=== PATIENT | female | born 1955 | race Caucasian/White ===

== ENCOUNTER 2016-07-12 13:01 | Emergency (ER) | payer OTHER ==
[2016-07-12] MEDS ORDERED: KETOROLAC 30 MG/ML 1 ML VIAL IVP STA (14:12)
[2016-07-12] MEDS ORDERED: SODIUM CHLORIDE 0.9% 1,000 ML IV ONE (14:16)
--- NOTE | 2016-07-12 14:16 | ED ---
Abdominal Pain HPI - General Chief Complaint: Abdominal Pain Stated Complaint: Abd Pain Time Seen by Provider: 07/12/16 13:59 Source: patient Mode of arrival: ambulatory Limitations: no limitations - History of Present Illness Initial Comments: This is a 60-year-old female who presents emergency department for suprapubic abdominal discomfort. She states that it originally started in her epigastric region about 3 days ago and has since migrated to her suprapubic region. She states that it seems to be worse when she is having a bowel movement or urinating. She denies any dysuria or hematuria however. She denies any nausea or vomiting. She had one episode of diarrhea earlier today that was nonbloody. [facility] her and sent her here for further evaluation. She denies any fevers or chills. She has taken a Tylenol at home with no relief. States she's never had anything like this previously. - Related Data Previous Rx's Medication Instructions Recorded Sulfamethox-Tmp 800-160Mg [Bactrim 1 tab PO Q12HR #14 tab 07/12/16 DS 800-160 mg] Allergies Allergy/AdvReac Type Severity Reaction Status Date / Time No Known Allergies Allergy Verified 07/12/16 15:00 Review of Systems ROS Statement: Those systems with pertinent positive or pertinent negative responses have been documented in the HPI. ROS Other: All systems not noted in ROS Statement are negative. Past Medical History Past Medical History: No Reported History History of Any Multi-Drug Resistant Organisms: None Reported Additional Past Surgical History / Comment(s): hemmorhoid Past Psychological History: No Psychological Hx Reported Smoking Status: Current every day smoker Past Alcohol Use History: Rare Past Drug Use History: None Reported General Exam - General Exam Comments Initial Comments: Constitutional: Awake alert Appears comfortable Head: Normocephalic atraumatic Eyes: no conjunctival injection No scleral icterus EOMI Neck: No JVD Supple Heart: Regular rate rhythm normal S1-S2 no murmurs Lungs: Clear to auscultation bilaterally No wheezing No rales Abdomen: Soft nondistended tenderness in the suprapubic region Extremities: Non edematous DP pulses intact Radial pulses intact Neuro: A&Ox3 No focal neurologic deficits Psych: Appropriate mood and affect Limitations: no limitations Course Vital Signs 07/12/16 13:09 Temperature 99.1 F Pulse Rate 103 H Respiratory 20 Rate Blood Pressure 112/73 O2 Sat by Pulse 99 Oximetry Medical Decision Making - Medical Decision Making This is a 60-year-old female who presents emergency department for suprapubic abdominal pain and lower back pain. Urine analysis revealed urinary tract infection. Urine culture was sent. Patient has mild leukocytosis and was tachycardic on arrival. She was given fluids and Toradol with improvement in her vitals. Her heart rate was 80 and her temperature was 97.8 on my check. At this time going to treat her for urinary tract infection with Bactrim. She needs close follow-up with her primary doctor. I told her that if her symptoms worsened or changed at all in the next 24-48 hours she needed to return to the emergency department for reevaluation. All questions were answered. - Lab Data Result diagrams: 07/12/16 14:25 07/12/16 14:25 Lab Results 07/12/16 07/12/16 07/12/16 Range/Units 14:20 14:25 14:25 WBC 12.3 H (3.8-10.6) k/uL RBC 4.80 (3.80-5.40) m/uL Hgb 15.8 (11.4-16.0) gm/dL Hct 46.4 H (34.0-46.0) % MCV 96.8 (80.0-100.0) fL MCH 33.0 (25.0-35.0) pg MCHC 34.1 (31.0-37.0) g/dL RDW 13.2 (11.5-15.5) % Plt Count 298 (150-450) k/uL Neutrophils % 69 % Lymphocytes % 24 % Monocytes % 3 % Eosinophils % 3 % Basophils % 1 % Neutrophils # 8.4 H (1.3-7.7) k/uL Lymphocytes # 2.9 (1.0-4.8) k/uL Monocytes # 0.4 (0-1.0) k/uL Eosinophils # 0.3 (0-0.7) k/uL Basophils # 0.1 (0-0.2) k/uL Sodium 143 (137-145) mmol/L Potassium 3.4 L (3.5-5.1) mmol/L Chloride 105 (98-107) mmol/L Carbon Dioxide 24 (22-30) mmol/L Anion Gap 14 mmol/L BUN 9 (7-17) mg/dL Creatinine 0.68 (0.52-1.04) mg/dL Est GFR (MDRD) Af Amer >60 (>60 ml/min/1.73 sqM) Est GFR (MDRD) Non-Af >60 (>60 ml/min/1.73 sqM) Glucose 103 H (74-99) mg/dL Calcium 9.8 (8.4-10.2) mg/dL Total Bilirubin 0.9 (0.2-1.3) mg/dL AST 22 (14-36) U/L ALT 26 (9-52) U/L Alkaline Phosphatase 106 (38-126) U/L Total Protein 7.6 (6.3-8.2) g/dL Albumin 4.5 (3.5-5.0) g/dL Lipase 78 (23-300) U/L Urine Color Light Yellow Urine Appearance Cloudy H (Clear) Urine pH 6.5 (5.0-8.0) Ur Specific [place] 1.004 (1.001-1.035) Urine Protein Negative (Negative) Urine Glucose (UA) Negative (Negative) Urine Ketones Negative (Negative) Urine Blood Moderate H (Negative) Urine Nitrite Negative (Negative) Urine Bilirubin Negative (Negative) Urine Urobilinogen <2.0 (<2.0) mg/dL Ur Leukocyte Esterase Large H (Negative) Urine RBC 24 H (0-5) /hpf Urine WBC 59 H (0-5) /hpf Ur Squamous Epith Cells 12 H (0-4) /hpf Urine Bacteria Many H (None) /hpf Disposition Clinical Impression: UTI (urinary tract infection) Disposition: HOME SELF-CARE Condition: Stable Instructions: Urinary Tract Infection in Women (ED) Prescriptions: Sulfamethox-Tmp 800-160Mg [Bactrim DS 800-160 mg] 1 tab PO Q12HR #14 tab Referrals: Patsy Pittman DO [Primary Care Provider] - 1-2 days
[2016-07-12 14:57] LABS: Basophils # (A) 0.1 k/uL (0-0.2); Basophils % (A) 1 %; CHCM 35.3; Eosinophils # (A) 0.3 k/uL (0-0.7); Eosinophils % (A) 3 %; HCT 46.4 % (34.0-46.0); HDW 2.59; HGB 15.8 gm/dL (11.4-16.0); Luc # (Auto) 0.14; Luc % (Auto) 1; Lymphocytes # (A) 2.9 k/uL (1.0-4.8); Lymphocytes % (A) 24 %; MCHC 34.1 g/dL (31.0-37.0); MCV 96.8 fL (80.0-100.0); Mean Platelet Volume 6.9; Monocytes # (A) 0.4 k/uL (0-1.0); Monocytes % (A) 3 %; Neutrophils # (A) 8.4 k/uL (1.3-7.7); Neutrophils % (A) 69 %; RDW 13.2 % (11.5-15.5); WBC 12.3 k/uL (3.8-10.6); WBC (Perox) 11.59
[2016-07-12 15:00] LABS: Appearance,Urine Cloudy (Clear); Bacteria,Urine Many /hpf; Bilirubin,Urine Negative (Negative); Glucose,Urine (UA) Negative (Negative); Ketones,Urine Negative (Negative); Leukocyte Esterase,Urine Large (Negative); Nitrite,Urine Negative (Negative); PH, Urine 6.5 (5.0-8.0); Particle Count 13762; Protein,Urine Negative (Negative); RBC,Urine 24 /hpf (0-5); Specific Gravity,Urine 1.004 (1.001-1.035); Squamous Epithelial Cell,Urine 12 /hpf (0-4); UA Billing (MACRO vs. MICRO) MICRO; Urobilinogen,Urine <2.0 mg/dL (<2.0); WBC,Urine 59 /hpf (0-5)
[2016-07-12 15:15] LABS: ALT 26 U/L (9-52); AST 22 U/L (14-36); Alkaline Phosphatase 106 U/L (38-126); Anion Gap 14 mmol/L; Blood Urea Nitrogen 9 mg/dL (7-17); Calcium 9.8 mg/dL (8.4-10.2); Carbon Dioxide 24 mmol/L (22-30); Chloride 105 mmol/L (98-107); Glucose 103 mg/dL (74-99); Non-African American GFR(MDRD) >60 (>60 ml/min/1.73 sqM); Potassium 3.4 mmol/L (3.5-5.1); Sodium 143 mmol/L (137-145); Total Bilirubin 0.9 mg/dL (0.2-1.3); Total Protein 7.6 g/dL (6.3-8.2)
[2016-07-12 15:44] VITALS: BP 130/77; PULSE 80; RESP 18; TEMP 98
== END 2016-07-12 15:44 | disposition home or self-care (01) ==
LOC: EC 13:01
DX: N39.0 Urinary tract infection, site not specified (principal); F17.200 Nicotine dependence, unspecified, uncomplicated
CPT/HCPCS: 99284; 96374; 96361; 36415; 80053; 83690; 85025; 81001; 87086; J1885

== ENCOUNTER → 2017-02-06 | Outpatient (CLI) | payer OTHER ==
--- NOTE | 2017-02-06 13:02 | CT ---
EXAMINATION TYPE: CT urogram wo/w con DATE OF EXAM: 02/06/2017 COMPARISON: NONE HISTORY: Gross hematuria CT DLP: 1766 mGycm CONTRAST: Performed and without and with IV Contrast, patient injected with 100 ml mL of Omnipaque 300. CT Urography was performed with unenhanced followed by enhanced images of the kidneys, ureters and ur inary bladder. Delayed images were obtained. 3d reconstruction was perfromed at a separate work sta tion. FINDINGS: KIDNEYS/BLADDER: Small renal cortical cyst medial aspect of right mid kidney measuring 7.4 mm. The le ft kidney demonstrates dominant mid pole cyst measuring 1.8 cm. 4 mm upper pole left renal cyst is al so noted. No evidence for nephrolithiasis or hydronephrosis. No filling defects identified or solid m asses seen. Urinary bladder is unremarkable. LUNG BASES-: No visible nodule. No infiltrate. LIVER/GB: No calcified gallstones. Bilobed hepatic cyst adjacent to the gallbladder fossa measuring 1.6 cm. Additional cysts noted inferior right hepatic lobe measuring 1.7 cm. Biliary tree is of norm al caliber. PANCREAS: No inflammation. No distinct mass. SPLEEN: No splenic enlargement. No lesion seen. ADRENALS: No nodule. No thickening. BOWEL: Normal appendix. Normal bowel caliber. No inflammation. GENITAL ORGANS: No gross abnormality. LYMPH NODES: No greater than 1cm abdominal or pelvic lymph nodes are appreciated. AORTA: No significant abnormality. OSSEOUS STRUCTURES: No significant abnormality is seen. OTHER: No significant additional abnormality is seen. IMPRESSION: 1. No significant abnormality to account for the patient's symptoms of gross hematuria. Bilateral sim ple appearing renal cysts noted.
== END | disposition home or self-care (01) ==
LOC: RADCTMAIN 10:29
PROVIDERS: ATTEND Urology
DX: N28.1 Cyst of kidney, acquired (principal)
CPT/HCPCS: 74178; 74400; Q9967

== ENCOUNTER → 2019-12-11 | Outpatient (CLI) | payer OTHER ==
--- NOTE | 2019-12-12 15:02 | MM ---
Reason for exam: screening (asymptomatic). Last mammogram was performed 13 years and 2 months ago. History: Family history of premenopausal breast cancer in mother. Took hormonal contraceptives for 1 year. Physical Findings: A clinical breast exam by your physician is recommended on an annual basis and results should be correlated with mammographic findings. MG Screening Mammo w CAD Bilateral CC and MLO view(s) were taken. Prior study comparison: October 24, 2006, bilateral screening mammogram w/CAD. The breast tissue is extremely dense which could obscure a lesion on mammography. Finding #1: There is a typically benign 6 mm equal density (isodense), circumscribed oval mass located 10 cm from the nipple in the upper outer quadrant, posterior position of the left breast consistent with probable lymph node, likely present previously but not well seen. Finding #2: There are fine grouped/clustered calcifications in the upper outer quadrant, middle position of the right breast 7cm from the nipple. Focal asymmetry left lower inner quadrant, not seen previously. ASSESSMENT: Incomplete: need additional imaging evaluation, BI-RAD 0 RECOMMENDATION: Special view mammogram of the right breast. If lesion persists on supplemental views, image directed ultrasound is recommended. [facility] will attempt to contact patient to return for supplemental views and ultrasound if indicated. Follow-up diagnostic mammogram of the left breast in 6 months.
== END | disposition home or self-care (01) ==
LOC: RADMAMWWP 11:31
PROVIDERS: ATTEND Family Medicine
DX: Z12.31 Encounter for screening mammogram for malignant neoplasm of breast (principal); Z80.3 Family history of malignant neoplasm of breast
CPT/HCPCS: 77067

== ENCOUNTER → 2020-02-10 | Outpatient (CLI) | payer OTHER ==
--- NOTE | 2020-02-11 09:48 | MM ---
Reason for exam: additional evaluation requested from abnormal screening. Last mammogram was performed 2 months ago. History: Patient is postmenopausal. Family history of premenopausal breast cancer in mother. Took hormonal contraceptives for 1 year. Physical Findings: Nurse did not find any significant physical abnormalities on exam. MG Work Up Mamm w CAD RT CC with magnification, MLO with magnification, and LM view(s) were taken of the right breast. Prior study comparison: December 11, 2019, bilateral MG screening mammo w CAD. October 24, 2006, bilateral screening mammogram w/CAD. The breast tissue is heterogeneously dense. This may lower the sensitivity of mammography. Finding: There are intermediate concern, suspicious coarse heterogeneous, grouped/clustered calcifications in the upper outer quadrant, posterior position of the right breast 8cm from the nipple. These may be adjacent to vascular calcifications. New finding since October 24, 2006. These results were verbally communicated with the patient and result sheet given to the patient on 02/10/20. ASSESSMENT: Suspicious, BI-RAD 4 RECOMMENDATION: Stereotactic core biopsy of the right breast. (right posterior calcification) Called Dr. Pittman's office with mammographic findings and has scheduled an appointment for the patient for 02/27/20 at 1:[address] Lantigua. Biopsy scheduled for 03/12/20 at 8:00. PRELIMINARY REPORT CALLED AND FAXED TO DR. LANTIGUA ON 02/11/20.
== END | disposition home or self-care (01) ==
LOC: RADMAMWWP 13:40
PROVIDERS: ATTEND Family Medicine
DX: R92.8 Other abnormal and inconclusive findings on diagnostic imaging of breast (principal)
CPT/HCPCS: 77065

== ENCOUNTER → 2020-02-27 | Outpatient (CLI) | payer OTHER ==
[2020-02-27 13:07] VITALS: BP 117/76; PULSE 82; RESP 16; TEMP 98
--- NOTE | 2020-02-27 13:57 | P.GSHP ---
History of Present Illness H&P Date: 02/27/20 Chief Complaint: microcalcifications of concern right breast Prerna is a 64 year old white female seen in consultation for Dr. Pittman with a complaint of microcalcifications of concern in the right breast. She had a bilateral mammogram on 02-10-20. This is her first mammogram since 2011. The calcifications are coarse heterogeneous in the upper outer quadrant posterior position and may be adjacent to vascular calcifications. There is concern was reported in the left breast. The patient does not feel any lumps masses or nodules in either breast. She is not complaining of any nipple discharge or skin changes. She is not complaining of any pain in her breast. She has no history of trauma or recent infection in either breast. She's never had surgery in either breast. Caffeine: Pepsi all day long Nicotine: One pack per day theobromine: Negative Family history: mother: colon cancer of this maternal grandmother: colon cancer maternal grandfather: breast cancer maternal aunt: breast cancer Hormonal History: menarche: 14 , breast fed: no, age at first : 20 menopause: 51 BCP: 1 year hormones: none Surgical History: Hemorrhoids Medical History: kidney infection hospital 5 days 8 years ago Social History: nicotine: 1/PPD alcohol: none drugs: none - Constitutional Constitutional: Denies chills, Denies fever - EENT Eyes: bilateral blurred vision Ears: deny: decreased hearing, tinnitus Ears, nose, mouth and throat: Reports headache, Denies sore throat - Breasts Breasts: bilateral: as per HPI - Cardiovascular Cardiovascular: Denies chest pain, Denies shortness of breath - Respiratory Comment: smoker - Gastrointestinal Comment: heartburn, will get colonoscopy; irregular bowel habits - Genitourinary (Female) Genitourinary: Reports as per HPI - Menstruation Menstruation: Reports postmenopausal - Musculoskeletal 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 - Integumentary Integumentary: Denies pruritus, Denies rash - Neurological Neurological: Reports numbness, Denies weakness - Psychiatric Comment: last year of [place] Psychiatric: Reports depression, Denies anxiety - Endocrine Endocrine: Reports weight change, Denies fatigue - Hematologic/Lymphatic Comment: none - Allergic/Immunologic Allergic/Immunologic: Reports as per HPI Past Medical History Past Medical History: No Reported History History of Any Multi-Drug Resistant Organisms: None Reported Additional Past Surgical History / Comment(s): hemmorhoid Past Psychological History: No Psychological Hx Reported Smoking Status: Current every day smoker Past Alcohol Use History: Rare Past Drug Use History: None Reported Medications and Allergies Home Medications Medication Instructions Recorded Confirmed Type No Known Home Medications 02/27/20 02/27/20 History Allergies Allergy/AdvReac Type Severity Reaction Status Date / Time No Known Allergies Allergy Verified 02/27/20 13:03 Surgical - Exam Vital Signs Temp Pulse Resp BP Pulse Ox 98.0 F 82 16 117/76 100 02/27/20 13:03 02/27/20 13:03 02/27/20 13:03 02/27/20 13:03 02/27/20 13:03 BMI 20.2 - General well developed - Eyes normal ocular movement - ENT normal pinna, normal nares - Neck no masses, trachea midline - Respiratory normal expansion, normal respiratory effort, clear to auscultation - Cardiovascular Rhythm: regular Heart Sounds: normal: S1, S2 - Abdomen Abdomen: soft, non tender, no guarding, no rigid, no rebound - Integumentary normal turgor - Neurologic no disoriented, no combative - Musculoskeletal normal gait - Psychiatric oriented to time, oriented to person, oriented to place, speech is normal, memory intact breast exam: BRA: 40B inspection: grade 2 ptosis bilateral palpation: right breast: Multi-positional exam fibrocystic changes, no dominant masses or nodules of concern Right axilla: No adenopathy of concern Left breast: Multiple positional exam fibrocystic changes no dominant masses or nodules of concern Left axilla: No adenopathy of concern Results Mammogram results reviewed Assessment and Plan Assessment: Impression: 1. Abnormal right breast mammogram 2. Fibrocystic breast changes 3. Family history of breast and colon cancer 4. Irregular bowel movements 5. Nicotine dependence Plan: 1. Stereotactic core biopsy right breast 2. Encouraged patient to have a colonoscopy performed 3. Encourage patient to stop smoking 4. We will discuss if patient would like to have genetic counseling secondary to strong family history of cancer Cc: Dr. Pittman Risk and benefits of procedure discussed with the patient. She understands she also understands of the lesion is near blood vessels that we may cancel this stereo procedure into an open procedure. Alternatives such as watchful waiting or resection in the operating room at this time I discussed but not recommended. We have also discussed genetic counseling at this time she would like to forego that. encounter 50 minutes, > 50 % of time in planning and counselling
== END | disposition home or self-care (01) ==
LOC: WWCWWP 12:55
PROVIDERS: ATTEND Surgery
DX: Z53.9 Procedure and treatment not carried out, unspecified reason (principal)

== ENCOUNTER → 2020-03-12 | Day surgery (SDC) | payer OTHER ==
[2020-03-12 07:28] VITALS: RESP 16
--- NOTE | 2020-03-12 08:39 | P.PCN ---
Date of Procedure: 03/12/20 Preoperative Diagnosis: Microcalcifications of concern right breast upper outer quadrant Postoperative Diagnosis: Same Procedure(s) Performed: Stereotactic core biopsy microcalcifications of concern upper outer quadrant/these were noted in the biopsy specimen Anesthesia: local Surgeon: Mariia Lantigua Estimated Blood Loss (ml): 0 Pathology: other (breast tissue) Condition: stable Disposition: same day Indications for Procedure: Microcalcifications of concern right breast upper outer quadrant Operative Findings: Dense breast tissue/microcalcifications noted in radiographic specimen Description of Procedure: The patient is a 64-year-old white female who was noted to have an area of microcalcifications in the upper-outer quadrant of the right breast which were of concern. Stereotactic core biopsy was recommended. Alternatives such as watchful waiting or open biopsy were not recommended. Patient understood the risks and benefits of the procedure and wished to proceed. The patient was taken to the stereotactic biopsy room. She was positioned prone on the lo-rad table. A annealing torch operator film was obtained. A lateral to medial approach was utilized. The area of concern was identified. The lesion was targeted. The breast was prepped using Betadine. 20 mL of 1% lidocaine were used to anesthetize the area of concern. A 9-gauge vacuum-assisted core rotating biopsy needle was driven to the correct coordinates. The needle was fired. A postoperative film was taken and the needle was noted to be in the correct location. 12 core biopsy samples were obtained. Radiograph of the specimen revealed microcalcifications of concern were in the specimen. A secure marked top at marker was placed. The patient tolerated the procedure in stable condition. The specimen will be sent to pathology the patient will follow-up with Dr. Samaniego in 1 week. At
[2020-03-12 08:46] VITALS: BP 103/68; PULSE 66; TEMP 98.2
--- NOTE | 2020-03-12 13:19 | MM ---
Stereotactic core biopsy right breast. HISTORY: Microcalcifications. The calcifications in question within the right breast were targeted by the undersigned. The examination was performed by the surgeon. Specimen radiograph demonstrates numerous calcifications within the specimen submitted. Post procedural mammogram demonstrates appropriate deployment of radiopaque clip marker. The patient tolerated the procedure well and left the department in stable condition. Pathology results are pending. IMPRESSION: Successful stereotactic core biopsy right breast with pathology results pending. Pathology Results: Benign RIGHT BREAST, CORE BIOPSY: Benign breast parenchyma with mild periductal chronic inflammation, focal adenosis, focal usual ductal hyperplasia and focal microcalcification. Recommendation Follow up mammogram of the right breast in 6 months. KATI
== END ==
LOC: RADMAMWWP 07:02
PROVIDERS: ATTEND Surgery
DX: N61.0 Mastitis without abscess (principal); N60.21 Fibroadenosis of right breast; N62 Hypertrophy of breast
CPT/HCPCS: 88305; 19081; A4648; J2001

== ENCOUNTER → 2020-03-19 | Outpatient (CLI) | payer OTHER ==
[2020-03-19 10:52] VITALS: BP 126/76; PULSE 97; RESP 18; TEMP 98
--- NOTE | 2020-03-19 11:17 | P.PN ---
Subjective Progress Note Date: 03/19/20 Principal diagnosis: Stereotactic core biopsy results Prerna Is a 64-year-old white female status post her tactic core biopsy of the right breast and 252. Pathology revealed benign breast parenchyma and mild. Ductal chronic inflammation with focal microcalcifications. The patient tolerated the procedure with no difficulties. Objective - Vital Signs Vital signs: Vital Signs Temp 98.0 F 03/19/20 10:50 Pulse 97 03/19/20 10:50 Resp 18 03/19/20 10:50 BP 126/76 03/19/20 10:50 Pulse Ox 99 03/19/20 10:50 Intake & Output 03/18/20 03/19/20 03/19/20 18:59 06:59 18:59 Weight 49.895 kg - Exam BMI 20.1 - Constitutional General appearance: Present: average body habitus - EENT Eyes: Present: EOMI ENT: Present: hearing grossly normal - Neck Neck: Present: normal ROM - Respiratory Respiratory: bilateral: CTA - Cardiovascular Rhythm: regular Heart sounds: normal: S1, S2 - Integumentary Integumentary: Present: normal turgor - Musculoskeletal Musculoskeletal: Present: gait normal - Psychiatric Psychiatric: Present: A&O x's 3, appropriate affect, intact judgment & insight Assessment and Plan Assessment: Impression: 1. Patient status post a tactic core biopsy right breast, pathology benign fibrocystic changes Plan: 1. Right breast mammogram in 6 months with physician exam CC: Dr. Patsy Pittman encounter 10 minutes time spent in reviewing medical records, physical examination, and counseling.
== END | disposition home or self-care (01) ==
LOC: WWCWWP 10:39
PROVIDERS: ATTEND Surgery
DX: Z53.9 Procedure and treatment not carried out, unspecified reason (principal)

== ENCOUNTER 2020-06-07 09:21 | Day surgery (SDC) | payer OTHER ==
[2020-06-03 10:39] VITALS: BMI 20.3
[~2020-06-07 09:21] MED LIST: LACTATED RINGERS 1,000 ML IV SCH; LIDOCAINE 1% (10MG/ML) FOR IV START INTRADERMA PRN
[2020-06-07 10:00] VITALS: RESP 16; TEMP 98.2
[2020-06-07] MEDS ORDERED: PROPOFOL 10 MG/ML 20 ML VIAL IV ONE (10:29)
--- NOTE | 2020-06-07 10:48 | P.GSHP ---
History of Present Illness H&P Date: 06/07/20 Chief Complaint: screening colon is a 64-year-old female who presents today for screening colonoscopy. Patient complains jonna of some rectal pain and itching from hemorrhoids. Past Medical History Past Medical History: No Reported History Additional Past Medical History / Comment(s): family hx. colon cancer, hemorrhoids History of Any Multi-Drug Resistant Organisms: None Reported Additional Past Surgical History / Comment(s): hemmorhoidectomy, colonoscopy Past Anesthesia/Blood Transfusion Reactions: No Reported Reaction Smoking Status: Current every day smoker Medications and Allergies Home Medications Medication Instructions Recorded Confirmed Type No Known Home Medications 02/27/20 06/07/20 History Allergies Allergy/AdvReac Type Severity Reaction Status Date / Time No Known Allergies Allergy Verified 06/07/20 09:58 Surgical - Exam Vital Signs Temp Pulse Resp BP Pulse Ox 98.2 F 90 16 119/73 99 06/07/20 09:58 06/07/20 09:58 06/07/20 09:58 06/07/20 09:58 06/07/20 09:58 - General well developed, well nourished, no distress - Eyes PERRL - ENT normal pinna - Neck no masses - Respiratory normal expansion - Cardiovascular Rhythm: regular - Abdomen Abdomen: soft, non tender Assessment and Plan Assessment: we'll perform screening colonoscopy
--- NOTE | 2020-06-07 10:50 | P.OP ---
Date of Procedure: 06/07/20 Preoperative Diagnosis: screening colonoscopy Postoperative Diagnosis: diverticulosis Internal and external hemorrhoids Left colon polyp Procedure(s) Performed: colonoscopy Anesthesia: MAC Surgeon: Jorgito Aly Pathology: other (left colon) Condition: stable Disposition: PACU Description of Procedure: the patient's placed on the endoscopy table in the lateral position. She received IV sedation. Digital rectal exam is performed which revealed internal and external hemorrhoids. The flexible colonoscope was then placed patient anus passed throughout the entire colon. The ileocecal valve was visualized. Ccecum, ascending and transverse colon appeared normal. In the left colon there was a small sessile polyp was removed with the cold forcep. There were diverticular changes of the left colon and sigmoid colon. The scope was then brought back the rectum and this appeared normal. Scope was brought the patient and internal and external hemorrhoids are noted.
[2020-06-07 11:17] VITALS: BP 116/80; PULSE 72
== END 2020-06-07 11:25 | disposition home or self-care (01) ==
LOC: ORWHC2ENDO 09:21
PROVIDERS: ATTEND Surgery
DX: Z12.11 Encounter for screening for malignant neoplasm of colon (principal); K63.5 Polyp of colon; K64.4 Residual hemorrhoidal skin tags; K64.8 Other hemorrhoids; K57.30 Diverticulosis of large intestine without perforation or abscess without bleeding; Z97.2 Presence of dental prosthetic device (complete) (partial); Z80.0 Family history of malignant neoplasm of digestive organs; F17.200 Nicotine dependence, unspecified, uncomplicated
CPT/HCPCS: 88305; 45380; J2704

== ENCOUNTER 2020-06-15 06:19 | Day surgery (SDC) | payer OTHER ==
[2020-06-14 09:09] VITALS: BMI 20.3
[~2020-06-15 06:19] MED LIST changes: +ACETAMINOPHEN TAB 500 MG TAB PO PRN; +DEXAMETHASONE SOD PHOSPHATE 4 MG/ML 1 ML VIAL IV ONE; +HEPARIN SODIUM,PORCINE/PF 5,000 UNIT/0.5 ML SYRINGE SQ PRN; -LIDOCAINE 1% (10MG/ML) FOR IV START INTRADERMA PRN; +MIDAZOLAM 2 MG/2 ML VIAL IV PRN; +ONDANSETRON 4 MG/2 ML VIAL IVP ONE; +Pre Op ABX Message 1 EACH MISC MISCELLANE ONE; +SCOPOLAMINE 1.5MG/72HR PATCH TRANSDERM ONE
[2020-06-15 06:50] VITALS: TEMP 97.7
[2020-06-15] MEDS ORDERED: LIDOCAINE 1% (10MG/ML) FOR IV START INTRADERMA ONE (06:56)
[2020-06-15] MEDS ORDERED: HYDROmorphone 0.5 MG/0.5 ML SYRINGE IVP PRN (07:00)
[2020-06-15] MEDS ORDERED: MIDAZOLAM 2 MG/2 ML VIAL ONE (07:56)
[2020-06-15] MEDS ORDERED: KETAMINE 10 MG/ML 20 ML VIAL ONE (07:56)
[2020-06-15] MEDS ORDERED: fentaNYL (PF) 50 MCG/ML 2 ML AMP ONE (07:56)
[2020-06-15] MEDS ORDERED: PROPOFOL 10 MG/ML 20 ML VIAL IV ONE (07:56)
--- NOTE | 2020-06-15 08:04 | P.GSHP ---
History of Present Illness H&P Date: 06/15/20 Chief Complaint: Internal and external hemorrhoids This is a 64-year-old female presents today for hemorrhoidectomy. She patient's echo points of pain and bleeding from hemorrhoids. Past Medical History Past Medical History: No Reported History History of Any Multi-Drug Resistant Organisms: None Reported Additional Past Surgical History / Comment(s): hemorrhoid removal Past Anesthesia/Blood Transfusion Reactions: No Reported Reaction Smoking Status: Current every day smoker - Past Family History Mother Family Medical History: Cancer Father Family Medical History: Cancer Medications and Allergies Home Medications Medication Instructions Recorded Confirmed Type No Known Home Medications 02/27/20 06/15/20 History Allergies Allergy/AdvReac Type Severity Reaction Status Date / Time No Known Allergies Allergy Verified 06/15/20 06:39 Surgical - Exam Vital Signs Temp Pulse Resp BP Pulse Ox 97.7 F 74 16 101/60 97 06/15/20 06:48 06/15/20 06:48 06/15/20 06:48 06/15/20 06:48 06/15/20 06:48 - General well developed, well nourished, no distress - Eyes PERRL - ENT normal pinna - Neck no masses - Respiratory normal expansion - Cardiovascular Rhythm: regular - Abdomen Abdomen: soft, non tender Assessment and Plan Assessment: Internal and external hemorrhoids. We'll perform . Hemorrhoidectomy
[2020-06-15] MEDS ORDERED: LIDOCAINE 1%-EPI 1:100,000 20 ML VIAL SQ ONE (08:31)
--- NOTE | 2020-06-15 08:33 | P.OP ---
Date of Procedure: 06/15/20 Preoperative Diagnosis: Internal and external hemorrhoids Postoperative Diagnosis: Internal and external hemorrhoids Procedure(s) Performed: Internal hemorrhoidectomy Anesthesia: PRACHI Surgeon: Jorgito Aly Pathology: other (Hemorrhoids) Condition: stable Disposition: PACU Description of Procedure: The patient's placed on the operative table in the prone position she received IV sedation. Local anesthetic was placed at the hemorrhoids. Using the anal retractor the hemorrhoids were visualized. The left lateral hemorrhoidal column was grasped with Allis clamp and then dissected free with the Harmonic scissors. The right anterior and right posterior hemorrhoidal column also excised in similar fashion. He was no bleeding seen. Patient top she will was sent to recovery room stable condition.
[2020-06-15 09:11] VITALS: RESP 18
[2020-06-15 09:40] VITALS: BP 111/74; PULSE 80
== END 2020-06-15 10:00 | disposition home or self-care (01) ==
LOC: OR 06:19
PROVIDERS: ATTEND Surgery
DX: K64.8 Other hemorrhoids (principal); K64.4 Residual hemorrhoidal skin tags; F17.210 Nicotine dependence, cigarettes, uncomplicated; Z80.9 Family history of malignant neoplasm, unspecified; J44.9 Chronic obstructive pulmonary disease, unspecified
CPT/HCPCS: 88304; 46260; J2250; J1100; J2405; J3010; J2704; J1644

== ENCOUNTER 2023-06-21 06:34 | Day surgery (SDC) | payer MEDICARE ==
[2023-06-14 14:26] VITALS: BMI 19.2
[~2023-06-21 06:34] MED LIST changes: -ACETAMINOPHEN TAB 500 MG TAB PO PRN; -DEXAMETHASONE SOD PHOSPHATE 4 MG/ML 1 ML VIAL IV ONE; -HEPARIN SODIUM,PORCINE/PF 5,000 UNIT/0.5 ML SYRINGE SQ PRN; -LACTATED RINGERS 1,000 ML IV SCH; +LIDOCAINE 1% (10MG/ML) FOR IV START INTRADERMA PRN; -MIDAZOLAM 2 MG/2 ML VIAL IV PRN; -ONDANSETRON 4 MG/2 ML VIAL IVP ONE; -Pre Op ABX Message 1 EACH MISC MISCELLANE ONE; -SCOPOLAMINE 1.5MG/72HR PATCH TRANSDERM ONE
[2023-06-21] MEDS: LACTATED RINGERS 1,000 ML IV SCH (06:59)
[2023-06-21 07:28] VITALS: TEMP 97
[2023-06-21] MEDS ORDERED: PROPOFOL 10 MG/ML 20 ML VIAL IV ONE (07:40)
--- NOTE | 2023-06-21 07:42 | P.GSHP ---
History of Present Illness H&P Date: 06/21/23 Chief Complaint: GERD, family history of colon cancer this a 67-year-old female who presents today for EGD and colonoscopy. Patient has quit of GERD. She also a family history of colon cancer. Past Medical History Past Medical History: No Reported History, GERD/Reflux History of Any Multi-Drug Resistant Organisms: None Reported Date of last positivie culture/infection: 03/31 Additional Past Surgical History / Comment(s): hemmorhoid Past Anesthesia/Blood Transfusion Reactions: No Reported Reaction Additional Past Anesthesia/Blood Transfusion Reaction / Comment(s): no blood transfusion Smoking Status: Current every day smoker - Past Family History Mother Family Medical History: Cancer Additional Family Medical History / Comment(s): colon Medications and Allergies Home Medications Medication Instructions Recorded Confirmed Type Acetaminophen Tab [Tylenol] 650 mg PO Q6H #30 tab 06/15/20 06/21/23 Rx Ibuprofen [Motrin] 600 mg PO Q6HR PRN #40 tab 06/15/20 06/21/23 Rx Omeprazole Magnesium [PriLOSEC OTC] 20 mg PO DAILY 06/14/23 06/21/23 History Allergies Allergy/AdvReac Type Severity Reaction Status Date / Time No Known Allergies Allergy Verified 06/21/23 06:58 Surgical - Exam Vital Signs Temp Pulse Resp BP Pulse Ox 97.0 F L 101 H 18 113/72 98 06/21/23 06:57 06/21/23 06:57 06/21/23 06:57 06/21/23 06:57 06/21/23 06:57 - General well developed, well nourished, no distress - Eyes PERRL - ENT normal pinna - Neck no masses - Respiratory normal expansion - Cardiovascular Rhythm: regular - Abdomen Abdomen: soft, non tender Assessment and Plan Assessment: GERD, family history colon cancer. We'll perform EGD and colonoscopy.
--- NOTE | 2023-06-21 08:06 | P.OP ---
Date of Procedure: 06/21/23 Preoperative Diagnosis: GERD Family history of colon cancer Postoperative Diagnosis: antral gastritis Small hiatal hernia Mild esophagitis Normal colon Procedure(s) Performed: EGD Colonoscopy Anesthesia: MAC Surgeon: Jorgito Aly Pathology: other (antrum, esophagus) Condition: stable Disposition: PACU Description of Procedure: the patient's placed on the endoscopy table in the lateral position. She received IV sedation. The gastro-/oropharynx passed in the esophagus and stomach. Scope was placed through the pylorus. The first and second portion of the duodenum appeared normal. Scope summer back the antrum this. Mildly inflamed. A biopsies was performed. The scope was unretroflexed and remainder the stomach appeared normal. The GE junction was at 38 7 is. There was a small hiatal hernia. The distal esophagus appeared mildly inflamed. The proximal esophagus. Normal. Scope withdrawn for patient. Next digital rectal exam the flexible colonoscope was then placed patient anus and passed throughout the entire colon. The ileocecal valve was visualized. The cecum, ascending and transverse colon appeared normal. The descending and sigmoid colon appeared normal. Scope was then withdrawn frthe rectum. This appeared normal. Scope withdrawn for patient.
[2023-06-21 08:22] VITALS: RESP 16
[2023-06-21 09:17] VITALS: BP 114/63; PULSE 75
== END 2023-06-21 09:00 | disposition home or self-care (01) ==
LOC: ORWHC2ENDO 06:34
PROVIDERS: ATTEND Surgery
DX: Z12.11 Encounter for screening for malignant neoplasm of colon (principal); K29.50 Unspecified chronic gastritis without bleeding; K21.00 Gastro-esophageal reflux disease with esophagitis, without bleeding; K44.9 Diaphragmatic hernia without obstruction or gangrene; F17.200 Nicotine dependence, unspecified, uncomplicated; Z80.0 Family history of malignant neoplasm of digestive organs
CPT/HCPCS: 88305; 43239; J2704; G0105

== ENCOUNTER → 2023-12-14 | Outpatient (CLI) | payer MEDICARE ==
[2023-12-14 14:54] LABS: African American GFR (CKD) >90 (>60 ml/min/1.73 sqM); Blood Urea Nitrogen 7 mg/dL (7-17); Non-African American GFR(CKD) >90 (>60 ml/min/1.73 sqM)
--- NOTE | 2023-12-16 01:09 | CT ---
EXAMINATION TYPE: CT angio abd aorta w/Runoff CT DLP: 1486.7 mGycm, Automated exposure control for dose reduction was used. DATE OF EXAM: 12/14/2023 4:13 PM COMPARISON: CT angiogram 02/06/2017. CLINICAL INDICATION:Female, 68 years old with history of I70.213 CARDIOVASCULAR DISEASE; bilateral le g pain TECHNIQUE: Multiple thin slice sub-millimeter images were obtained through the abdomen, pelvis, and l ower extremities before and after administration of contrast. Patient was given Isovue 370, 125 cc i ntravenously. 3-D reconstructed images and maximum intensity projection images were obtained of the abdomen, pelvis, and lower extremities. FINDINGS: CTA Abdomen and pelvis: The abdominal aorta does not demonstrate aneurysmal dilatation. Atherosclero tic plaquing is identified within the abdominal aorta. The origins of the superior mesenteric artery , renal arteries, inferior mesenteric artery, and celiac axis are patent. Atherosclerotic plaquing w ith some mural thrombus formation is identified in the common iliac arteries. Short segment 1 cm sherri gth high-grade stenosis involving the proximal aspect of the left common iliac artery with calcified and noncalcified plaque (series 5, image 137). Additional mild focal stenosis of the remaining left c ommon iliac artery. Both internal and external iliac arteries are patent without stenotic in stenosis . CTA Lower extremities: Right: The common femoral and superficial femoral arteries are patent. The popliteal artery is patent . Anterior and posterior tibial arteries as well as the peroneal artery are patent. Anterior and post erior tibial arteries cross the ankle. Left: The common femoral and superficial femoral arteries are patent. The popliteal artery is patent. Anterior and posterior tibial arteries as well as the peroneal artery are patent. Anterior and poste rior tibial arteries cross the ankle. VISCERA: The liver, spleen, adrenal glands, kidneys, pancreas, and gallbladder are not optimally enha nced due the arterial phase utilized. LIVER: Couple of cysts identified with the largest in the inferior right hepatic lobe measuring up to 2.3 cm. GALLBLADDER AND BILE DUCTS: Unremarkable. PANCREAS: Unremarkable. SPLEEN: Unremarkable. ADRENAL GLANDS: Unremarkable. KIDNEYS AND URETERS: No evidence of hydronephrosis or renal calculus. Right renal 2.0 cm simple cyst. Left renal 4.9 cm simple cyst. Additional smaller bilateral renal cysts. PELVIS BLADDER: Incompletely distended but grossly unremarkable. REPRODUCTIVE: Calcification within the uterine fundus measuring up to 7 mm likely representing a calc ified fibroid. ABDOMEN & PELVIS STOMACH AND BOWEL: Stomach and duodenum are unremarkable. The appendix is within normal limits. No fo edmund bowel wall thickening or surrounding infiltrate changes. No evidence of bowel obstruction. PERITONEUM: No evidence of pneumoperitoneum or free fluid. VASCULATURE: No evidence of aortic aneurysm. MUSCULOSKELETAL: No acute osseous abnormalities. Minimal grade 1 interest is L4-L5. No pars defect. M ultilevel degenerative disc disease most pronounced at L5-S1. Sclerotic benign bone island identified within the left iliac bone anteriorly. LYMPH NODES: No evidence for lymphadenopathy. SOFT TISSUE/ABDOMINAL WALL: Unremarkable LOWER CHEST: Moderate centrilobular emphysematous changes. Minimal atelectatic change within the ling tae and right middle lobes. Fat filled bilateral Bochdalek hernias. IMPRESSION 1. No evidence of vascular occlusion. 2. Atherosclerotic disease involving abdominal aorta and lower extremity vasculature. Primarily invo lves the infrarenal abdominal aorta extending into the bilateral common iliac arteries. Focal short s egment high-grade stenosis involving the left proximal common iliac artery secondary to calcified and noncalcified plaque. No significant atherosclerotic disease involving remaining the bilateral lower extremities. 3. At least two vessels are seen crossing the ankle joint. 4. Moderate COPD changes. [facility], , 12/16/2023 1:07 AM
== END | disposition home or self-care (01) ==
LOC: RADCTMAIN 14:10
PROVIDERS: ATTEND Surgery
DX: J44.9 Chronic obstructive pulmonary disease, unspecified (principal); I70.213 Atherosclerosis of native arteries of extremities with intermittent claudication, bilateral legs; I70.0 Atherosclerosis of aorta
CPT/HCPCS: 82565; 84520; 75635; 36415; Q9967

== ENCOUNTER → 2024-02-11 | Day surgery (SDC) | payer MEDICARE ==
[2024-02-05 10:21] VITALS: BMI 20.1
[~2024-02-11] MED LIST changes: +ALPRAZolam 0.25 MG TAB PO PRN; +ASPIRIN 325 MG TAB PO PRN; -LIDOCAINE 1% (10MG/ML) FOR IV START INTRADERMA PRN; +ZOLPIDEM 5 MG TAB PO PRN
[2024-02-11] MEDS: SODIUM CHLORIDE 0.9% 1,000 ML in EMPTY BAG 1 BAG IV ONE (07:38)
[2024-02-11] MEDS: IV FLUID CONTINUATION 1,000 ML IV ONE (07:38)
[2024-02-11 07:49] LABS: Basophils % (A) 0 %; Eosinophils # (A) 0.1 k/uL (0-0.7); Eosinophils % (A) 1 %; HCT 41.4 % (34.0-46.0); HGB 14.1 gm/dL (11.4-16.0); Lymphocytes # (A) 0.8 k/uL (1.0-4.8); Lymphocytes % (A) 7 %; MCH 32.5 pg (25.0-35.0); MCV 95.6 fL (80.0-100.0); Mean Platelet Volume 7.5; Monocytes % (A) 0 %; Neutrophils # (A) 9.4 k/uL (1.3-7.7); Neutrophils % (A) 91 %; Platelet Count 369 k/uL (150-450); RBC 4.33 m/uL (3.80-5.40); RDW 12.8 % (11.5-15.5); WBC 10.4 k/uL (3.8-10.6)
[2024-02-11 07:53] VITALS: TEMP 97
[2024-02-11 08:02] LABS: African American GFR (CKD) 71 (>60 ml/min/1.73 sqM); Anion Gap 12 mmol/L; Blood Urea Nitrogen 16 mg/dL (7-17); Calcium 9.6 mg/dL (8.4-10.2); Carbon Dioxide 19 mmol/L (22-30); Chloride 105 mmol/L (98-107); Glucose 199 mg/dL (74-99); Non-African American GFR(CKD) 61 (>60 ml/min/1.73 sqM); Potassium 4.1 mmol/L (3.5-5.1); Sodium 136 mmol/L (137-145)
[2024-02-11] MEDS: ALPRAZolam 0.5 MG TAB PO PRN (08:02)
[2024-02-11] MEDS: MIDAZOLAM 2 MG/2 ML VIAL IVP ONE (09:15)
[2024-02-11] MEDS: fentaNYL (PF) 50 MCG/ML 2 ML AMP IVP ONE (09:15)
[2024-02-11] MEDS: LIDOCAINE 1% INJ 10MG/ML (20 ML MDV) SQ ONE (09:16)
[2024-02-11] MEDS: HEPARIN SODIUM 1,000 UN/ML (10ML VL) IVP ONE (09:29)
[2024-02-11] MEDS: CLOPIDOGREL 75 MG TAB PO ONE (10:06)
[2024-02-11] MEDS: HEPARIN SODIUM,PORCINE 10,000 UNIT in SODIUM CHLORIDE 0.9% 1,000 ML IRRIGATION PRN (10:07)
[2024-02-11] MEDS: IOPAMIDOL-370 100ML BTL INJ ONE (10:07)
--- NOTE | 2024-02-11 10:07 | P.OP ---
Date of Procedure: 02/11/24 Preoperative Diagnosis: Disabling claudication Boris classification 3, left common iliac artery occlusion Postoperative Diagnosis: Same Procedure(s) Performed: Ultrasound-guided bilateral common femoral artery access Aortogram with selective left lower extremity angiogram second order Percutaneous transluminal balloon angioplasty of the left common iliac artery Percutaneous transluminal stenting of the left common iliac artery with a 7 x 27 mm VISI Pro stent Conscious sedation x 41 minutes Anesthesia: local Surgeon: Domenic Duarte Estimated Blood Loss (ml): 20 Pathology: none sent Disposition: PACU Indications for Procedure: 68-year-old female presented originally to the office secondary to pain with ambulation. She states she could not walk more than 100 feet without significant pain in her left lower extremity. She had arterial Doppler that demonstrated ABIs less than 0.6 on the left and underwent CTA which demonstrated occlusion of the left common iliac artery. She presents today for elective angiogram and balloon angioplasty and possible stenting of the left common iliac artery Operative Findings: Left common iliac artery occlusion Description of Procedure: After written informed consent was obtained the patient all risks benefits competitions were described the patient is brought to the Batch Plant Supervisor and laid in a supine position. The area of the bilateral groins was prepped and draped in the usual sterile fashion. Local anesthesia with moderate sedation was performed with continuous pulse ox monitoring and EKG monitoring. Utilizing ultrasound the bilateral common femoral artery was visualized and shown to be patent without any significant plaque. Utilizing a multipurpose needle under ultrasound guidance the artery was accessed bilaterally. Guidewire was placed followed by 6 [place] sheath. 035 Glidewire was then placed into the aorta followed by a [facility] hook catheter and angiogram was obtained demonstrating occlusion of the left common iliac artery just after the takeoff. Heparin was then administered and followed with an ACT. 035 Glidewire was then placed across the lesion towards the left common femoral artery sheath and utilizing a snare catheter the wire was snared and brought externally through the left common femoral artery sheath. The catheter was then guided over the wire into the aorta in a retrograde fashion from the left common femoral artery sheath and the wire was removed and angiogram was obtained demonstrating good intraluminal access across the lesion into the aorta. Balloon angioplasty was then performed with a 6 x 40 mm balloon with improvement of the lumen but still area of severe stenosis noted just after the takeoff. Utilizing a 7 x 27 mm balloon expandable stent the lesion was stented in normal fashion. Once completed final angiogram was obtained demonstrating complete resolution of the stenosis and occlusion with brisk flow to the common femoral and superficial femoral artery. Angiogram was then obtained distally and she had a good one-vessel runoff to the foot which was previous lesion seen on her CT scan. All guidewires and catheters were then removed. Vascade closure devices were utilized bilaterally and pressure was held for hemostasis. The patient taught the procedure well and had palpable DP pulses at the conclusion the procedure.
[2024-02-11] MEDS: HEPARIN SODIUM,PORCINE (1 ML) 2,500 UNIT in SODIUM CHLORIDE 0.9% 250 ML IRRIGATION PRN (10:08)
--- NOTE | 2024-02-11 10:47 | IR ---
EXAMINATION TYPE: IR stent intravas non coronary DATE OF EXAM: 02/11/2024 CLINICAL HISTORY: Peripheral arterial disease. Left leg pain. TECHNIQUE: Fluoroscopy. COMPARISON: None. FINDINGS: Fluoroscopic guidance was provided during angiogram with stent insertion procedure perform ed by Dr. Duarte. A total of 11.8 minutes of fluoroscopic time was utilized during the procedure an d 332 spot images was acquired. TOTAL DAP = 25.5 Gy x cm2. IMPRESSION: As Above. [facility], , 02/11/2024 10:45 AM
[2024-02-11 20:23] VITALS: RESP 16
[2024-02-11 20:24] VITALS: BP 121/66; PULSE 74
== END | disposition home or self-care (01) ==
LOC: CATHCVL 07:09
PROVIDERS: ATTEND Surgery
DX: I73.9 Peripheral vascular disease, unspecified (principal); I74.5 Embolism and thrombosis of iliac artery; Z91.041 Radiographic dye allergy status
CPT/HCPCS: 37221; 75625; 75710; 76937; 80048; 85025; C1894 ×2; C1769 ×3; C1773; C1887; C1725; C1876; C1760; J2250; J1644 ×3; J2003; J3010; Q9967

== ENCOUNTER 2024-05-29 02:50 | Emergency (ER) | payer MEDICARE ==
[2024-05-29 02:55] VITALS: RESP 18
--- NOTE | 2024-05-29 03:22 | ED ---
Back Pain HPI - General Chief Complaint: Back Pain/Injury Stated Complaint: Back pain Time Seen by Provider: 05/29/24 03:19 Source: patient, RN notes reviewed Mode of arrival: ambulatory Limitations: no limitations - History of Present Illness Initial Comments: 68-year-old female presenting to the ER for evaluation of lower back pain. Patient states her dog broke its back foot while attempting to jump into her bed on Sunday. On Sunday she was attempting to lift her 65 pound dog into her car to take it to the vet for evaluation when she started to have back spasms. She states she attempted to lift her dog approximately 5 times and was unable to. She believes she may have injured her back doing this as pain started immediately after. Back pain has been progressively worsening over the past couple of days. She describes it as a tightening spasm sensation with mild radiation of the left side. She reports pain makes it difficult for her to sit and ambulate. Patient reports laying still and while walking pain is tolerable. She has taken [id number] Motrin without relief of pain. She denies any radiating pain or saddle paresthesias. No fevers or history of IV drug abuse. Patient denies any bowel or bladder retention/incontinence. No other complaints - Related Data Home Medications Medication Instructions Recorded Confirmed Omeprazole Magnesium [PriLOSEC OTC] 20 mg PO DAILY PRN 06/14/23 02/11/24 Aspirin 81 mg PO DAILY 02/05/24 02/11/24 Venlafaxine HCl [Effexor XR] 37.5 mg PO QAM 02/05/24 02/11/24 Previous Rx's Medication Instructions Recorded Acetaminophen Tab [Tylenol] 650 mg PO Q6H #30 tab 06/15/20 Ibuprofen [Motrin] 600 mg PO Q6HR PRN #40 tab 06/15/20 Clopidogrel [Plavix] 75 mg PO DAILY #90 tablet 02/11/24 Cyclobenzaprine [Flexeril] 10 mg PO HS PRN #10 tab 05/29/24 Lidocaine 5% Patch [Lidoderm 5% 1 patch TOPICAL DAILY #30 patch 05/29/24 Patch] Allergies Allergy/AdvReac Type Severity Reaction Status Date / Time Iodinated Contrast Media Allergy itching Verified 05/29/24 02:52 all over iodine Allergy itching Verified 05/29/24 02:52 all over Review of Systems ROS Statement: Those systems with pertinent positive or pertinent negative responses have been documented in the HPI. ROS Other: All systems not noted in ROS Statement are negative. Past Medical History Past Medical History: GERD/Reflux, Vascular Disorder Additional Past Medical History / Comment(s): steroids December 2023 to treat rx to contract dye, currently has a blister inside of mouth, chronic back pain,hiatal hernia History of Any Multi-Drug Resistant Organisms: None Reported Date of last positivie culture/infection: 03/31 Additional Past Surgical History / Comment(s): hemmorhoid, egd,colonoscopy, Past Anesthesia/Blood Transfusion Reactions: No Reported Reaction, Motion Sickness Additional Past Anesthesia/Blood Transfusion Reaction / Comment(s): no blood transfusion Past Psychological History: No Psychological Hx Reported Smoking Status: Current every day smoker Past Alcohol Use History: None Reported Past Drug Use History: None Reported - Past Family History Mother Family Medical History: Cancer Father Family Medical History: Cancer General Exam Limitations: no limitations General appearance: alert, in no apparent distress Respiratory exam: Present: normal lung sounds bilaterally. Absent: respiratory distress, wheezes, rales, rhonchi, stridor Cardiovascular Exam: Present: regular rate, normal rhythm, normal heart sounds. Absent: systolic murmur, diastolic murmur, rubs, gallop, clicks Extremities exam: Present: normal inspection, full ROM, normal capillary refill (2+ bilateral PT pulses). Absent: tenderness, pedal edema, joint swelling, calf tenderness Back exam: Present: normal inspection Neurological exam: Present: alert, oriented X3, CN II-XII intact Skin exam: Present: warm, dry, intact, normal color. Absent: rash Course Vital Signs 05/29/24 05/29/24 02:52 04:02 Temperature 97.6 F 97.9 F Pulse Rate 62 78 Respiratory 18 18 Rate Blood Pressure 119/84 114/75 O2 Sat by Pulse 96 98 Oximetry Medical Decision Making - Medical Decision Making Was pt. sent in by a medical professional or institution (, PA, TELEGRAPH AND TELETYPE OPERATOR, urgent care, hospital, or skilled nursing...) When possible be specific @ -No Did you speak to anyone other than the patient for history (EMS, parent, family, police, friend...)? What history was obtained from this source @ -No Did you review nursing and triage notes (agree or disagree)? Why? @ -I reviewed and agree with nursing and triage notes Were old charts reviewed (outside hosp., previous admission, EMS record, old EKG, old radiological studies, urgent care reports/EKG's, skilled nursing records)? Report findings @ -No old charts were reviewed Differential Diagnosis (chest pain, altered mental status, abdominal pain women, abdominal pain men, vaginal bleeding, weakness, fever, dyspnea, syncope, headache, dizziness, GI bleed, back pain, seizure, CVA, palpatations, mental health, musculoskeletal)? @ -Differential Back Pain:Strain, zoster, cauda equina syndrome, epidural abscess, vertebral osteomyelitis, discitis, fracture, subluxation, disc herniation, DJD, spinal stenosis, dissection, AAA, pancreatitis, peptic ulcer disease, pyelonephritis, kidney stone, this is not meant to be an all-inclusive list. EKG interpreted by me (3pts min.). @ -None done X-rays interpreted by me (1pt min.). @ -Lumbar spine x-ray showing no acute fractures or dislocations. Degenerative changes noted. Severe disc height loss at L5-S1 CT interpreted by me (1pt min.). @ -None done U/S interpreted by me (1pt. min.). @ -None done What testing was considered but not performed or refused? (CT, X-rays, U/S, labs)? Why? @ -None What meds were considered but not given or refused? Why? @ -None Did you discuss the management of the patient with other professionals (professionals i.e. , PA, TELEGRAPH AND TELETYPE OPERATOR, lab, RT, psych nurse, secondary social studies teacher, numerical control operator, teacher, major gifts officer, trimming caser)? Give summary @ -No Was smoking cessation discussed for >3mins.? @ -No Was critical care preformed (if so, how long)? @ -No Were there social determinants of health that impacted care today? How? (Homelessness, low income, unemployed, alcoholism, drug addiction, transportation, low edu. Level, literacy, decrease access to med. care, longterm, rehab)? @ -No Was there de-escalation of care discussed even if they declined (Discuss DNR or withdrawal of care, Hospice)? DNR status @ -No What co-morbidities impacted this encounter? (DM, HTN, Smoking, COPD, CAD, Cancer, CVA, ARF, Chemo, Hep., AIDS, mental health diagnosis, sleep apnea, morbid obesity)? @ -None Was patient admitted / discharged? Hospital course, mention meds given and route, prescriptions, significant lab abnormalities, going to OR and other pertinent info. @ -Discharge. 68-year-old female presented to the ER for evaluation of back pain. History and physical exam completed. Vitals within acceptable limits. Patient is neurovascularly intact with no red flag back pain symptoms indicative of cauda equina syndrome. Patient is able to ambulate, no lower extremity weakness. X-rays obtained showing no acute fractures but degenerative changes noted. Patient received symptomatic control with lidocaine patch, Toradol and Flexeril, with improvement on reevaluation. Pain believed to be musculoskeletal in nature and advised her to follow-up closely with PCP. X-rays results and conservative treatment options including massage, stretching and heat along with continued use of ibuprofen and Tylenol discussed with patient. Strict return parameters discussed. Patient discharged in stable condition. Patient verbally expressed understanding and agreement with care plan. Case discussed with ED attending, Dr. Unger Undiagnosed new problem with uncertain prognosis? @ -No Drug Therapy requiring intensive monitoring for toxicity (Heparin, Nitro, Insulin, Cardizem)? @ -No Were any procedures done? @ -No Diagnosis/symptom? @ -Muscle spasm/back pain Acute, or Chronic, or Acute on Chronic? @ -Acute Uncomplicated (without systemic symptoms) or Complicated (systemic symptoms)? @ -Uncomplicated Side effects of treatment? @ -No Exacerbation, Progression, or Severe Exacerbation? @ -No Poses a threat to life or bodily function? How? (Chest pain, [place], [place], pneumonia, PE, COPD, DKA, ARF, appy, cholecystitis, CVA, Diverticulitis, Homicidal, Suicidal, threat to staff... and all critical care pts) @ -No - Radiology Data Radiology results: report reviewed, image reviewed Disposition Clinical Impression: Mechanical back pain, Muscle spasm Disposition: HOME SELF-CARE Condition: Stable Instructions (If sedation given, give patient instructions): Acute Low Back Pain (ED) Additional Instructions: May continue use of sphz-nqj-dgqltab ibuprofen and Tylenol for pain control. I also recommend heat and massage. Take Flexeril and use lidocaine patches as prescribed. Follow-up closely with PCP. Return to the ER for any new or worsening concerns Prescriptions: Cyclobenzaprine [Flexeril] 10 mg PO HS PRN #10 tab PRN Reason: Mild Spasms Lidocaine 5% Patch [Lidoderm 5% Patch] 1 patch TOPICAL DAILY #30 patch Is patient prescribed a controlled substance at d/c from ED?: No Referrals: Shukri Childers MD [Primary Care Provider] - 1-2 days Time of Disposition: 03:51
[2024-05-29] MEDS: LIDOCAINE 4% PATCH TOPICAL ONE (03:34)
[2024-05-29] MEDS: KETOROLAC 15 MG/ML 1 ML VIAL IM STA (03:34)
[2024-05-29] MEDS: CYCLOBENZAPRINE 5 MG TAB PO STA (03:35)
--- NOTE | 2024-05-29 03:57 | XR ---
EXAM: XR Lumbosacral Spine, 2 or 3 Views CLINICAL HISTORY: ITS.REASON XR Reason: back pain TECHNIQUE: Frontal and lateral views of the lumbar spine and sacrum. COMPARISON: No relevant prior studies available. FINDINGS: Vertebrae: No acute fracture. Dextroscoliosis. Grade 1 anterolisthesis L4 on L5 from facet arthrosis. Disc spaces: Severe disc height loss L5-S1 Soft tissues: Unremarkable. IMPRESSION: No acute findings. Degenerative changes.
[2024-05-29 04:03] VITALS: BP 114/75; PULSE 78; TEMP 97.9
== END 2024-05-29 04:02 | disposition home or self-care (01) ==
LOC: EC 02:50
DX: M62.830 Muscle spasm of back (principal); F17.200 Nicotine dependence, unspecified, uncomplicated; Z91.041 Radiographic dye allergy status
CPT/HCPCS: 72100; 99283; 96372; J1885